=== PATIENT | male | born 1935 | race Caucasian/White ===

== ENCOUNTER 2022-07-20 15:26 | Inpatient (IN) | payer MEDICARE, OTHER ==
[~2022-07-20] VITALS: Ht 185.4 cm; Wt 77.0 kg
[2022-07-20 16:12] LABS: APPEARANCE,URINE CLEAR (CLEAR); BILIRUBIN,URINE NEGATIVE (NEGATIVE); GLUCOSE, URINE (UA) NEGATIVE (NEGATIVE); KETONES,URINE NEGATIVE (NEGATIVE); LEUKOCYTE ESTERASE ,URINE NEGATIVE (NEGATIVE); NITRATE,URINE NEGATIVE (NEGATIVE); OCCULT BLOOD,URINE TRACE (NEGATIVE); PROTEIN,URINE NEGATIVE (NEGATIVE); SPECIFIC GRAVITIY, URINE 1.009 (1.003-1.030); UROBILINOGEN,URINE <=1.0 mg/dL (<=1.0)
[2022-07-20 16:55] LABS: INR 1.1 (0.9-1.1); PROTHROMBIN TIME 11.5 SEC (9.4-11.6)
[2022-07-20 17:08] LABS: ALBUMIN 3.5 g/dL (3.4-5.0); BILIRUBIN,TOTAL 2.7 mg/dL (0.1-1.0); CALCIUM, TOTAL 8.8 mg/dL (8.8-10.5); CREATININE 3.78 mg/dL (0.60-1.30); TOTAL PROTEIN, SERUM 8.4 g/dL (6.4-8.2)
[2022-07-20 17:13] LABS: POTASSIUM 2.9 mmol/L (3.5-5.1)
[2022-07-20 17:22] LABS: BACTERIA,URINE None Seen /HPF (None Seen); WBC,URINE 0-2 /HPF (0-5)
[2022-07-20 17:24] LABS: BASOPHILS % (AUTO) 0.3 % (0.0-2.0); HEMATOCRIT 31.6 % (41-53); HEMOGLOBIN 10.7 g/dL (13.5-17.5); LYMPHOCYTES # (AUTO) 0.6 K/uL (1.0-4.8); LYMPHOCYTES % (AUTO) 4.9 % (22.0-44.0); MEAN CORPUSCULAR HEMOGLOBIN 26.6 pg (26.0-34.0); MEAN CORPUSCULAR HGB CONC 33.9 G/dL (31.0-37.0); MEAN CORPUSCULAR VOLUME 79 fL (80-100); MONOCYTES # (AUTO) 1.1 K/uL (0.1-1.0); MONOCYTES % (AUTO) 9.3 % (2.0-9.0); NEUTROPHILS % (AUTO) 84.5 % (40.0-70.0); PLATELET COUNT (AUTO) 293 K/uL (150-450); RED BLOOD CELL COUNT(AUTO) 4.03 MIL/uL (4.50-5.90); RED CELL DISTRIBUTION WIDTH 20.4 % (11.5-14.5)
[2022-07-20] MEDS ORDERED: FUROSEMIDE 40 MG/4 ML VIAL IVP ONE (17:30)
[2022-07-20] MEDS ORDERED: CefTRIAXone 1 GM/DEXTROSE 50 ML IV ONE (17:30)
[2022-07-20] MEDS ORDERED: AZITHROMYCIN 500 MG/NS 250 ML IV ONE (17:30)
[2022-07-20] MEDS ORDERED: POTASSIUM CHLORIDE 20 MEQ ER TABLET PO ONE (17:30)
[2022-07-20 17:35] LABS: MAGNESIUM 3.1 mg/dL (1.80-2.40)
[2022-07-20] MEDS ORDERED: BUMETANIDE 0.25 MG/ML 4 ML VIAL IVP ONE (18:15)
[2022-07-20] MEDS ORDERED: ONDANSETRON HCL 4 MG/2 ML VIAL IVP PRN (19:15)
[2022-07-20 19:43] LABS: BILIRUBIN,DIRECT 0.3 mg/dL (0.00-0.20); BILIRUBIN,TOTAL 2.8 mg/dL (0.1-1.0)
[2022-07-20] MEDS: DOCUSATE SODIUM 100 MG CAPSULE PO SCH (20:31)
[2022-07-20 22:19] LABS: CREATININE,URINE RANDOM 34.8 mg/dL (30.0-125.0)
[2022-07-20 22:53] LABS: % IRON SATURATION 16.2 % (30-44)
[2022-07-20] MEDS: HEPARIN SODIUM,PORCINE 5,000 UNITS/ML VIAL SQ SCH (23:38)
[2022-07-21] MEDS ORDERED: DEXTROSE 50%-WATER 25 GM/50 ML SYRINGE IVP PRN (05:00)
[2022-07-21 05:01] LABS: ABG BASE EXCESS 14.4 mmol/L (-2.0-3.0); ABG CARBOXYHEMOGLOBIN 1.2 % (0.0-1.5); ABG METHEMOGLOBIN 0.3 % (0.0-1.5); ABG OXYGEN CONTENT 14.8 mL/dL (15.0-23.0); ABG OXYGEN SATURATION 98.4 % (95.0-98.0); ABG OXYHEMOGLOBIN 96.9 % (94.0-100.0); ABG PCO2 41 mmHg (35-45); ABG TOTAL HEMOGLOBIN 10.7 G/dL (12.0-18.0); SOURCE, BLOOD GAS ARTERIAL; TEMPERATURE, FAHRENHEIT, BG 98.6 FAHREN (96.0-98.6)
[2022-07-21 05:02] LABS: ABG A-A DIFF O2 40.6 mmHg (10-20.0); O2 DEVICE,BLOOD GAS NASAL CANNULA (ROOM AIR); SITE, BLOOD GAS RT RADIAL
[2022-07-21 05:08] LABS: HEMATOCRIT 30.1 % (41-53); HEMOGLOBIN 10.4 g/dL (13.5-17.5); MEAN CORPUSCULAR HEMOGLOBIN 27.1 pg (26.0-34.0); MEAN CORPUSCULAR HGB CONC 34.5 G/dL (31.0-37.0); MEAN CORPUSCULAR VOLUME 79 fL (80-100); PLATELET COUNT (AUTO) 236 K/uL (150-450); RED BLOOD CELL COUNT(AUTO) 3.83 MIL/uL (4.50-5.90); RED CELL DISTRIBUTION WIDTH 19.5 % (11.5-14.5)
[2022-07-21 05:20] LABS: CALCIUM, TOTAL 8.6 mg/dL (8.8-10.5); CREATININE 3.64 mg/dL (0.60-1.30); POTASSIUM 3.3 mmol/L (3.5-5.1)
[2022-07-21 06:03] LABS: BAND NEUTROPHILS % (MANUAL) 2 % (0-5); LYMPHOCYTES % (MANUAL) 5 % (22-44); MONOCYTES % (MANUAL) 7 % (2-9); SEGMENTED NEUTROPHILS % 86 % (40-70)
[2022-07-21] MEDS ORDERED: PIPERACILLIN/TAZO 3.375 GM/D5W 50 ML IV ONE (08:00)
[2022-07-21] MEDS ORDERED: PERFLUTREN PROTEIN-A MICROSPHERES 0.22 MG/ML 3 ML VIAL IVP ONE (08:15)
[2022-07-21] MEDS: DOCUSATE SODIUM 100 MG CAPSULE PO SCH ×2 (09:00→20:30)
[2022-07-21 10:59] VITALS: BP 143/72
[2022-07-21 11:01] VITALS: BP 143/70
[2022-07-21] MEDS: INSULIN LISPRO 100 UNITS/ML SQ PRN ×3 (12:17→20:32)
[2022-07-21] MEDS: CARVEDILOL 3.125 MG TABLET PO SCH ×2 (12:19→20:30)
[2022-07-21] MEDS: HEPARIN SODIUM,PORCINE 5,000 UNITS/ML VIAL SQ SCH ×3 (12:19→23:52)
[2022-07-21 13:41] LABS: GLUCOMETER DEV NAME(LOC) 5S.2C; GLUCOSE,POINT OF CARE 188 MG/DL (70-110)
[2022-07-21 13:48] VITALS: BP 143/72
[2022-07-21] MEDS ORDERED: SODIUM CHLORIDE 0.9% 250 ML IV ONE (13:54)
[2022-07-21] MEDS: PIPERACILLIN SODIUM/TAZOBACTAM 2.25 GM in DEXTROSE 5%-WATER 50 ML IV SCH ×2 (14:10→20:30)
[2022-07-21] MEDS ORDERED: VANCOMYCIN 1GM/WATER(PEG/NADA) 200 ML IV PRN (15:00)
[2022-07-21] MEDS ORDERED: VANCOMYCIN 1GM/WATER(PEG/NADA) 200 ML IV ONE (16:00)
[2022-07-21] MEDS: ASPIRIN 81 MG DR TABLET PO SCH (16:24)
[2022-07-21 16:50] VITALS: BP 144/67
[2022-07-21] MEDS ORDERED: CefTRIAXone 1 GM/DEXTROSE 50 ML IV SCH (18:00)
[2022-07-21] MEDS: DOXYCYCLINE HYCLATE 100 MG in DEXTROSE 5%-WATER 100 ML IV SCH (18:36)
[2022-07-21] MEDS ORDERED: AZITHROMYCIN 500 MG/NS 250 ML IV SCH (19:00)
[2022-07-21 20:15] VITALS: BP 145/72
[2022-07-22 00:22] VITALS: BP 129/65
[2022-07-22 03:11] LABS: GLUCOMETER DEV NAME(LOC) 5N.2C; GLUCOSE,POINT OF CARE 180 MG/DL (70-110)
[2022-07-22 03:11] LABS: GLUCOMETER DEV NAME(LOC) 5N.2C; GLUCOSE,POINT OF CARE 288 MG/DL (70-110)
[2022-07-22 04:39] VITALS: BP 150/74
[2022-07-22] MEDS: PIPERACILLIN SODIUM/TAZOBACTAM 2.25 GM in DEXTROSE 5%-WATER 50 ML IV SCH ×3 (04:54→21:25)
[2022-07-22] MEDS: DOXYCYCLINE HYCLATE 100 MG in DEXTROSE 5%-WATER 100 ML IV SCH ×2 (05:39→17:05)
[2022-07-22] MEDS: INSULIN LISPRO 100 UNITS/ML SQ PRN ×4 (05:50→21:26)
[2022-07-22 07:49] VITALS: BP 139/72
[2022-07-22] MEDS: DOCUSATE SODIUM 100 MG CAPSULE PO SCH ×2 (09:08→21:25)
[2022-07-22] MEDS: HEPARIN SODIUM,PORCINE 5,000 UNITS/ML VIAL SQ SCH ×3 (09:08→23:21)
[2022-07-22] MEDS: ATORVASTATIN CALCIUM 40 MG TABLET PO SCH (09:08)
[2022-07-22] MEDS: ASPIRIN 81 MG DR TABLET PO SCH (09:08)
[2022-07-22] MEDS: CARVEDILOL 3.125 MG TABLET PO SCH ×2 (09:08→21:25)
[2022-07-22 10:13] LABS: BASOPHILS % (AUTO) 0.4 % (0.0-2.0); EOSINOPHILS % (AUTO) 1.4 % (1.0-6.0); HEMATOCRIT 29.2 % (41-53); HEMOGLOBIN 9.9 g/dL (13.5-17.5); LYMPHOCYTES # (AUTO) 0.4 K/uL (1.0-4.8); MEAN CORPUSCULAR HEMOGLOBIN 26.7 pg (26.0-34.0); MEAN CORPUSCULAR HGB CONC 33.8 G/dL (31.0-37.0); MEAN CORPUSCULAR VOLUME 79 fL (80-100); MONOCYTES # (AUTO) 0.9 K/uL (0.1-1.0); MONOCYTES % (AUTO) 7.7 % (2.0-9.0); NEUTROPHILS # (AUTO) 10.6 K/uL (1.8-7.7); PLATELET COUNT (AUTO) 239 K/uL (150-450); RED CELL DISTRIBUTION WIDTH 20.4 % (11.5-14.5)
[2022-07-22 10:16] LABS: NEUTROPHILS % (AUTO) 87.5 % (40.0-70.0)
[2022-07-22 10:25] LABS: CALCIUM, TOTAL 8.4 mg/dL (8.8-10.5); CREATININE 3.37 mg/dL (0.60-1.30)
[2022-07-22 10:32] LABS: POTASSIUM 2.4 mmol/L (3.5-5.1)
[2022-07-22 11:24] VITALS: BP 131/62
[2022-07-22] MEDS: POTASSIUM CHL 10 MEQ/WATER 50 ML IV SCH ×3 (13:04→23:21)
[2022-07-22] MEDS: EPOETIN ALFA 10,000 UNITS/ML VIAL SQ SCH (13:22)
[2022-07-22 16:03] VITALS: BP 139/73
[2022-07-22] MEDS ORDERED: POTASSIUM CHLORIDE 20 MEQ ER TABLET PO PRN (17:00)
[2022-07-22 20:02] VITALS: BP 129/62
[2022-07-22] MEDS ORDERED: SODIUM CL IRRIG SOLN BOTTLE 0 ML IRRIG ONE (20:13)
[2022-07-22 22:29] LABS: CALCIUM, TOTAL 8.5 mg/dL (8.8-10.5); CREATININE 3.14 mg/dL (0.60-1.30); PHOSPHORUS 4.6 mg/dL (2.5-4.9)
[2022-07-22 22:31] LABS: POTASSIUM 2.9 mmol/L (3.5-5.1)
[2022-07-22] MEDS ORDERED: SODIUM CHLORIDE 0.9% 500 ML IV ONE (23:59)
[2022-07-23] MEDS: POTASSIUM CHL 10 MEQ/WATER 50 ML IV SCH (03:11)
[2022-07-23] MEDS: PIPERACILLIN SODIUM/TAZOBACTAM 2.25 GM in DEXTROSE 5%-WATER 50 ML IV SCH ×3 (04:52→20:54)
[2022-07-23 06:44] LABS: BASOPHILS % (AUTO) 0.4 % (0.0-2.0); EOSINOPHILS % (AUTO) 0.9 % (1.0-6.0); HEMATOCRIT 26.8 % (41-53); HEMOGLOBIN 9.4 g/dL (13.5-17.5); LYMPHOCYTES # (AUTO) 0.5 K/uL (1.0-4.8); LYMPHOCYTES % (AUTO) 3.5 % (22.0-44.0); MEAN CORPUSCULAR HEMOGLOBIN 27.7 pg (26.0-34.0); MEAN CORPUSCULAR HGB CONC 34.9 G/dL (31.0-37.0); MEAN CORPUSCULAR VOLUME 79 fL (80-100); MONOCYTES # (AUTO) 1.1 K/uL (0.1-1.0); MONOCYTES % (AUTO) 8.9 % (2.0-9.0); PLATELET COUNT (AUTO) 195 K/uL (150-450); RED BLOOD CELL COUNT(AUTO) 3.39 MIL/uL (4.50-5.90); RED CELL DISTRIBUTION WIDTH 20.1 % (11.5-14.5)
[2022-07-23] MEDS: DOXYCYCLINE HYCLATE 100 MG in DEXTROSE 5%-WATER 100 ML IV SCH ×2 (06:45→17:24)
[2022-07-23] MEDS: ALBUTEROL SULFATE 2.5 MG/0.5 ML NEB SOLUTION NEB SCH ×3 (06:50→23:39)
[2022-07-23] MEDS: IPRATROPIUM BROMIDE 0.5 MG/2.5 ML NEB SOLUTION NEB SCH ×3 (06:50→23:39)
[2022-07-23 06:52] LABS: NEUTROPHILS % (AUTO) 86.3 % (40.0-70.0)
[2022-07-23 07:12] LABS: GLUCOMETER DEV NAME(LOC) 5N.2C; GLUCOSE,POINT OF CARE 187 MG/DL (70-110)
[2022-07-23 07:12] LABS: GLUCOMETER DEV NAME(LOC) 5N.2C; GLUCOSE,POINT OF CARE 194 MG/DL (70-110)
[2022-07-23 07:49] VITALS: BP 136/63
[2022-07-23] MEDS: ATORVASTATIN CALCIUM 40 MG TABLET PO SCH (08:25)
[2022-07-23] MEDS: HEPARIN SODIUM,PORCINE 5,000 UNITS/ML VIAL SQ SCH ×3 (08:25→22:47)
[2022-07-23] MEDS: CARVEDILOL 3.125 MG TABLET PO SCH ×2 (08:26→20:54)
[2022-07-23] MEDS: ASPIRIN 81 MG DR TABLET PO SCH (08:26)
[2022-07-23] MEDS: DOCUSATE SODIUM 100 MG CAPSULE PO SCH ×2 (09:00→21:00)
[2022-07-23 11:03] LABS: CALCIUM, TOTAL 8.5 mg/dL (8.8-10.5); CREATININE 3.09 mg/dL (0.60-1.30); MAGNESIUM 2.9 mg/dL (1.80-2.40); PHOSPHORUS 4.4 mg/dL (2.5-4.9); POTASSIUM 3.6 mmol/L (3.5-5.1); VANCOMYCIN,RANDOM 8.9 mcg/mL (25.0-50.0)
[2022-07-23 11:32] VITALS: BP 134/77
[2022-07-23] MEDS ORDERED: VANCOMYCIN 1GM/WATER(PEG/NADA) 200 ML IV ONE (12:00)
[2022-07-23] MEDS ORDERED: POTASSIUM CHLORIDE 20 MEQ ER TABLET PO PRN (12:00)
[2022-07-23] MEDS: INSULIN LISPRO 100 UNITS/ML SQ PRN ×3 (12:12→20:55)
[2022-07-23] MEDS: ALBUTEROL SULFATE 2.5 MG/0.5 ML NEB SOLUTION NEB PRN ×2 (15:07→20:19)
[2022-07-23] MEDS: IPRATROPIUM BROMIDE 0.5 MG/2.5 ML NEB SOLUTION NEB PRN ×2 (15:07→20:19)
[2022-07-23 15:59] VITALS: BP 135/72
[2022-07-23] MEDS ORDERED: FUROSEMIDE 40 MG/4 ML VIAL IVP ONE ×2 (16:00→22:15)
[2022-07-23 17:31] LABS: GLUCOMETER DEV NAME(LOC) 5S.2C; GLUCOSE,POINT OF CARE 195 MG/DL (70-110)
[2022-07-23 17:31] LABS: GLUCOMETER DEV NAME(LOC) 5S.2C; GLUCOSE,POINT OF CARE 266 MG/DL (70-110)
[2022-07-23 19:23] VITALS: BP 140/74
[2022-07-23 22:00] LABS: GLUCOMETER DEV NAME(LOC) 5N.2C; GLUCOSE,POINT OF CARE 237 MG/DL (70-110)
[2022-07-23 22:00] LABS: GLUCOMETER DEV NAME(LOC) 5N.2C; GLUCOSE,POINT OF CARE 212 MG/DL (70-110)
[2022-07-23 22:02] LABS: GLUCOMETER DEV NAME(LOC) 5S.2C; GLUCOSE,POINT OF CARE 222 MG/DL (70-110)
[2022-07-23 22:02] LABS: GLUCOMETER DEV NAME(LOC) 5N.2C; GLUCOSE,POINT OF CARE 200 MG/DL (70-110)
[2022-07-24 00:18] VITALS: BP 140/70
[2022-07-24] MEDS: PIPERACILLIN SODIUM/TAZOBACTAM 2.25 GM in DEXTROSE 5%-WATER 50 ML IV SCH ×3 (04:34→20:04)
[2022-07-24] MEDS: INSULIN LISPRO 100 UNITS/ML SQ PRN ×4 (05:23→20:03)
[2022-07-24] MEDS: DOXYCYCLINE HYCLATE 100 MG in DEXTROSE 5%-WATER 100 ML IV SCH ×2 (05:25→17:25)
[2022-07-24 05:44] VITALS: BP 125/65
[2022-07-24] MEDS: IPRATROPIUM BROMIDE 0.5 MG/2.5 ML NEB SOLUTION NEB SCH ×3 (07:19→22:47)
[2022-07-24] MEDS: ALBUTEROL SULFATE 2.5 MG/0.5 ML NEB SOLUTION NEB SCH ×3 (07:19→22:47)
[2022-07-24 07:26] LABS: BASOPHILS % (AUTO) 0.3 % (0.0-2.0); EOSINOPHILS % (AUTO) 0.6 % (1.0-6.0); HEMATOCRIT 27.4 % (41-53); HEMOGLOBIN 9.3 g/dL (13.5-17.5); LYMPHOCYTES # (AUTO) 0.4 K/uL (1.0-4.8); LYMPHOCYTES % (AUTO) 3.7 % (22.0-44.0); MEAN CORPUSCULAR HEMOGLOBIN 26.9 pg (26.0-34.0); MEAN CORPUSCULAR VOLUME 79 fL (80-100); MONOCYTES # (AUTO) 1.1 K/uL (0.1-1.0); MONOCYTES % (AUTO) 9.3 % (2.0-9.0); NEUTROPHILS # (AUTO) 10.3 K/uL (1.8-7.7); PLATELET COUNT (AUTO) 192 K/uL (150-450); RED BLOOD CELL COUNT(AUTO) 3.46 MIL/uL (4.50-5.90); RED CELL DISTRIBUTION WIDTH 20.2 % (11.5-14.5)
[2022-07-24 07:43] LABS: NEUTROPHILS % (AUTO) 86.1 % (40.0-70.0)
[2022-07-24 07:45] LABS: CALCIUM, TOTAL 8.8 mg/dL (8.8-10.5); CREATININE 3.4 mg/dL (0.60-1.30); MAGNESIUM 2.8 mg/dL (1.80-2.40); PHOSPHORUS 5.2 mg/dL (2.5-4.9); POTASSIUM 3.4 mmol/L (3.5-5.1)
[2022-07-24 08:10] VITALS: BP 129/60
[2022-07-24] MEDS: ASPIRIN 81 MG DR TABLET PO SCH (08:20)
[2022-07-24] MEDS: HEPARIN SODIUM,PORCINE 5,000 UNITS/ML VIAL SQ SCH ×3 (08:20→23:25)
[2022-07-24] MEDS: CARVEDILOL 3.125 MG TABLET PO SCH ×2 (08:20→20:17)
[2022-07-24] MEDS: ATORVASTATIN CALCIUM 40 MG TABLET PO SCH (08:21)
[2022-07-24] MEDS: DOCUSATE SODIUM 100 MG CAPSULE PO SCH ×2 (08:29→20:17)
[2022-07-24] MEDS: POTASSIUM CHLORIDE 20 MEQ ER TABLET PO PRN ×2 (09:04→21:14)
[2022-07-24 10:01] LABS: GLUCOMETER DEV NAME(LOC) 5S.2C; GLUCOSE,POINT OF CARE 222 MG/DL (70-110)
[2022-07-24 11:35] VITALS: BP 123/71
[2022-07-24] MEDS: IPRATROPIUM BROMIDE 0.5 MG/2.5 ML NEB SOLUTION NEB PRN (11:57)
[2022-07-24] MEDS: ALBUTEROL SULFATE 2.5 MG/0.5 ML NEB SOLUTION NEB PRN (11:57)
[2022-07-24 16:50] VITALS: BP 131/67
[2022-07-24 20:13] VITALS: BP 146/68
[2022-07-24 21:01] LABS: GLUCOMETER DEV NAME(LOC) 5N.2C; GLUCOSE,POINT OF CARE 175 MG/DL (70-110)
[2022-07-24 21:26] LABS: GLUCOMETER DEV NAME(LOC) 5S.2C; GLUCOSE,POINT OF CARE 212 MG/DL (70-110)
[2022-07-24 21:26] LABS: GLUCOMETER DEV NAME(LOC) 5S.2C; GLUCOSE,POINT OF CARE 224 MG/DL (70-110)
[2022-07-24] MEDS: BUDESONIDE 0.5 MG/2 ML NEB SOLUTION NEB SCH (21:37)
[2022-07-25 00:58] VITALS: BP 134/62
[2022-07-25] MEDS: IPRATROPIUM BROMIDE 0.5 MG/2.5 ML NEB SOLUTION NEB PRN (03:04)
[2022-07-25] MEDS: ALBUTEROL SULFATE 2.5 MG/0.5 ML NEB SOLUTION NEB PRN (03:04)
[2022-07-25] MEDS: PIPERACILLIN SODIUM/TAZOBACTAM 2.25 GM in DEXTROSE 5%-WATER 50 ML IV SCH ×3 (05:18→20:35)
[2022-07-25 06:02] VITALS: BP 131/65
[2022-07-25] MEDS: DOXYCYCLINE HYCLATE 100 MG in DEXTROSE 5%-WATER 100 ML IV SCH ×2 (06:04→18:45)
[2022-07-25] MEDS: INSULIN LISPRO 100 UNITS/ML SQ PRN ×4 (06:14→20:37)
[2022-07-25 07:23] LABS: BASOPHILS % (AUTO) 0.4 % (0.0-2.0); EOSINOPHILS % (AUTO) 0.8 % (1.0-6.0); HEMATOCRIT 26.2 % (41-53); LYMPHOCYTES # (AUTO) 0.5 K/uL (1.0-4.8); LYMPHOCYTES % (AUTO) 3.5 % (22.0-44.0); MEAN CORPUSCULAR HEMOGLOBIN 27.5 pg (26.0-34.0); MEAN CORPUSCULAR HGB CONC 34.5 G/dL (31.0-37.0); MEAN CORPUSCULAR VOLUME 80 fL (80-100); MONOCYTES # (AUTO) 1.5 K/uL (0.1-1.0); MONOCYTES % (AUTO) 10.1 % (2.0-9.0); NEUTROPHILS # (AUTO) 12.9 K/uL (1.8-7.7); PLATELET COUNT (AUTO) 228 K/uL (150-450); RED BLOOD CELL COUNT(AUTO) 3.29 MIL/uL (4.50-5.90); RED CELL DISTRIBUTION WIDTH 21.1 % (11.5-14.5)
[2022-07-25 07:32] LABS: NEUTROPHILS % (AUTO) 85.2 % (40.0-70.0)
[2022-07-25 07:46] LABS: ALBUMIN 3.1 g/dL (3.4-5.0); CREATININE 3.39 mg/dL (0.60-1.30); MAGNESIUM 2.9 mg/dL (1.80-2.40); PHOSPHORUS 4.6 mg/dL (2.5-4.9); POTASSIUM 3.4 mmol/L (3.5-5.1); TOTAL PROTEIN, SERUM 7.8 g/dL (6.4-8.2); VANCOMYCIN,RANDOM 15.2 mcg/mL (25.0-50.0)
[2022-07-25] MEDS: ALBUTEROL SULFATE 2.5 MG/0.5 ML NEB SOLUTION NEB SCH ×3 (07:53→23:03)
[2022-07-25] MEDS: IPRATROPIUM BROMIDE 0.5 MG/2.5 ML NEB SOLUTION NEB SCH ×3 (07:53→23:03)
[2022-07-25] MEDS ORDERED: BUMETANIDE 1 MG TABLET PO SCH (08:00)
[2022-07-25 08:05] LABS: GLUCOMETER DEV NAME(LOC) 5N.2C; GLUCOSE,POINT OF CARE 195 MG/DL (70-110)
[2022-07-25] MEDS: BUDESONIDE 0.5 MG/2 ML NEB SOLUTION NEB SCH ×2 (08:07→20:04)
[2022-07-25] MEDS: EPOETIN ALFA 10,000 UNITS/ML VIAL SQ SCH (08:47)
[2022-07-25] MEDS: HEPARIN SODIUM,PORCINE 5,000 UNITS/ML VIAL SQ SCH ×3 (08:48→23:15)
[2022-07-25] MEDS: DOCUSATE SODIUM 100 MG CAPSULE PO SCH ×2 (08:48→21:00)
[2022-07-25] MEDS: CARVEDILOL 3.125 MG TABLET PO SCH ×2 (08:48→20:34)
[2022-07-25] MEDS: ATORVASTATIN CALCIUM 40 MG TABLET PO SCH (08:48)
[2022-07-25] MEDS: ASPIRIN 81 MG DR TABLET PO SCH (08:48)
[2022-07-25] MEDS ORDERED: POTASSIUM CHLORIDE 10% 40 MEQ/30 ML LIQUID UDCUP PO ONE ×2 (11:15→19:00)
[2022-07-25 11:19] VITALS: BP 141/66
[2022-07-25] MEDS ORDERED: VANCOMYCIN 1GM/WATER(PEG/NADA) 200 ML IV ONE (13:00)
[2022-07-25] MEDS ORDERED: POTASSIUM CHLORIDE 20 MEQ ER TABLET PO ONE ×2 (13:15→20:00)
[2022-07-25 13:56] LABS: GLUCOMETER DEV NAME(LOC) 5S.2C; GLUCOSE,POINT OF CARE 244 MG/DL (70-110)
[2022-07-25 15:19] VITALS: BP 129/70
[2022-07-25 20:25] VITALS: BP 137/68
[2022-07-25] MEDS: BUMETANIDE 1 MG TABLET PO SCH (20:35)
[2022-07-25] MEDS: ACETAMINOPHEN 325 MG TABLET PO PRN (21:23)
[2022-07-26] VITALS (7 sets, daily range): BP systolic 115–148; BP diastolic 64–80
[2022-07-26 03:56] LABS: GLUCOMETER DEV NAME(LOC) 5N.2C; GLUCOSE,POINT OF CARE 186 MG/DL (70-110)
[2022-07-26 03:56] LABS: GLUCOMETER DEV NAME(LOC) 5N.2C; GLUCOSE,POINT OF CARE 203 MG/DL (70-110)
[2022-07-26] MEDS: PIPERACILLIN SODIUM/TAZOBACTAM 2.25 GM in DEXTROSE 5%-WATER 50 ML IV SCH ×3 (04:11→19:53)
[2022-07-26] MEDS: INSULIN LISPRO 100 UNITS/ML SQ PRN ×4 (05:10→19:55)
[2022-07-26] MEDS: DOXYCYCLINE HYCLATE 100 MG in DEXTROSE 5%-WATER 100 ML IV SCH ×2 (05:11→18:32)
[2022-07-26 05:31] LABS: GLUCOMETER DEV NAME(LOC) 5N.2C; GLUCOSE,POINT OF CARE 174 MG/DL (70-110)
[2022-07-26 06:39] LABS: BASOPHILS % (AUTO) 0.5 % (0.0-2.0); EOSINOPHILS % (AUTO) 1.5 % (1.0-6.0); HEMATOCRIT 23.9 % (41-53); HEMOGLOBIN 8.3 g/dL (13.5-17.5); LYMPHOCYTES # (AUTO) 0.6 K/uL (1.0-4.8); LYMPHOCYTES % (AUTO) 4.9 % (22.0-44.0); MEAN CORPUSCULAR HEMOGLOBIN 27.6 pg (26.0-34.0); MEAN CORPUSCULAR HGB CONC 34.5 G/dL (31.0-37.0); MEAN CORPUSCULAR VOLUME 80 fL (80-100); MONOCYTES # (AUTO) 1.3 K/uL (0.1-1.0); NEUTROPHILS # (AUTO) 9.4 K/uL (1.8-7.7); NEUTROPHILS % (AUTO) 82.1 % (40.0-70.0); PLATELET COUNT (AUTO) 197 K/uL (150-450); RED BLOOD CELL COUNT(AUTO) 2.99 MIL/uL (4.50-5.90); RED CELL DISTRIBUTION WIDTH 20.9 % (11.5-14.5)
[2022-07-26] MEDS: ALBUTEROL SULFATE 2.5 MG/0.5 ML NEB SOLUTION NEB SCH ×3 (07:19→23:04)
[2022-07-26] MEDS: IPRATROPIUM BROMIDE 0.5 MG/2.5 ML NEB SOLUTION NEB SCH ×3 (07:19→23:04)
[2022-07-26 07:49] LABS: ALBUMIN 2.9 g/dL (3.4-5.0); BILIRUBIN,TOTAL 3.3 mg/dL (0.1-1.0); CALCIUM, TOTAL 9.1 mg/dL (8.8-10.5); CREATININE 3.69 mg/dL (0.60-1.30); POTASSIUM 3.9 mmol/L (3.5-5.1); TOTAL PROTEIN, SERUM 7.5 g/dL (6.4-8.2)
[2022-07-26] MEDS: BUDESONIDE 0.5 MG/2 ML NEB SOLUTION NEB SCH ×2 (08:03→20:00)
[2022-07-26] MEDS: CARVEDILOL 3.125 MG TABLET PO SCH ×2 (08:52→19:53)
[2022-07-26] MEDS: ASPIRIN 81 MG DR TABLET PO SCH (08:52)
[2022-07-26] MEDS: HEPARIN SODIUM,PORCINE 5,000 UNITS/ML VIAL SQ SCH ×3 (08:53→23:29)
[2022-07-26] MEDS: BUMETANIDE 1 MG TABLET PO SCH ×2 (08:53→17:43)
[2022-07-26] MEDS: INSULIN GLARGINE,HUM.REC.ANLOG 100 UNITS/ML SQ SCH (08:56)
[2022-07-26] MEDS: DOCUSATE SODIUM 100 MG CAPSULE PO SCH ×2 (09:00→20:00)
[2022-07-26] MEDS: ATORVASTATIN CALCIUM 40 MG TABLET PO SCH (09:03)
[2022-07-26] MEDS: POTASSIUM CHLORIDE 10% 40 MEQ/30 ML LIQUID UDCUP PO SCH (13:33)
[2022-07-26 19:46] LABS: GLUCOMETER DEV NAME(LOC) 5S.2C; GLUCOSE,POINT OF CARE 196 MG/DL (70-110)
[2022-07-26 21:26] LABS: GLUCOMETER DEV NAME(LOC) 5N.2C; GLUCOSE,POINT OF CARE 168 MG/DL (70-110)
[2022-07-26 21:26] LABS: GLUCOMETER DEV NAME(LOC) 5N.1C; GLUCOSE,POINT OF CARE 204 MG/DL (70-110)
[2022-07-26 21:31] LABS: GLUCOMETER DEV NAME(LOC) 5N.2C; GLUCOSE,POINT OF CARE 154 MG/DL (70-110)
[2022-07-26] MEDS: ACETAMINOPHEN 325 MG TABLET PO PRN (21:57)
[2022-07-27 03:18] VITALS: BP 104/66
[2022-07-27] MEDS: PIPERACILLIN SODIUM/TAZOBACTAM 2.25 GM in DEXTROSE 5%-WATER 50 ML IV SCH ×3 (04:06→20:46)
[2022-07-27] MEDS: DOXYCYCLINE HYCLATE 100 MG in DEXTROSE 5%-WATER 100 ML IV SCH ×2 (05:09→17:22)
[2022-07-27] MEDS: BUMETANIDE 1 MG TABLET PO SCH ×2 (05:33→17:22)
[2022-07-27] MEDS: INSULIN LISPRO 100 UNITS/ML SQ PRN ×4 (05:33→22:01)
[2022-07-27] MEDS: IPRATROPIUM BROMIDE 0.5 MG/2.5 ML NEB SOLUTION NEB SCH ×3 (07:15→23:24)
[2022-07-27] MEDS: ALBUTEROL SULFATE 2.5 MG/0.5 ML NEB SOLUTION NEB SCH ×3 (07:15→23:25)
[2022-07-27 07:20] LABS: CALCIUM, TOTAL 8.8 mg/dL (8.8-10.5); CREATININE 3.83 mg/dL (0.60-1.30); POTASSIUM 3.7 mmol/L (3.5-5.1); VANCOMYCIN,RANDOM 18.6 mcg/mL (25.0-50.0)
[2022-07-27 07:45] VITALS: BP 141/75
[2022-07-27] MEDS: BUDESONIDE 0.5 MG/2 ML NEB SOLUTION NEB SCH ×2 (08:05→20:12)
[2022-07-27] MEDS: HEPARIN SODIUM,PORCINE 5,000 UNITS/ML VIAL SQ SCH ×2 (08:36→16:27)
[2022-07-27] MEDS: CARVEDILOL 3.125 MG TABLET PO SCH ×2 (08:36→20:46)
[2022-07-27] MEDS: ATORVASTATIN CALCIUM 40 MG TABLET PO SCH (08:36)
[2022-07-27] MEDS: ASPIRIN 81 MG DR TABLET PO SCH (08:37)
[2022-07-27] MEDS: POTASSIUM CHLORIDE 10% 40 MEQ/30 ML LIQUID UDCUP PO SCH (08:37)
[2022-07-27] MEDS: EPOETIN ALFA 10,000 UNITS/ML VIAL SQ SCH (08:37)
[2022-07-27] MEDS: INSULIN GLARGINE,HUM.REC.ANLOG 100 UNITS/ML SQ SCH (08:43)
[2022-07-27] MEDS: DOCUSATE SODIUM 100 MG CAPSULE PO SCH ×2 (09:00→20:46)
[2022-07-27 11:51] LABS: GLUCOMETER DEV NAME(LOC) 5N.1C; GLUCOSE,POINT OF CARE 166 MG/DL (70-110)
[2022-07-27 11:51] LABS: GLUCOMETER DEV NAME(LOC) 5N.1C; GLUCOSE,POINT OF CARE 145 MG/DL (70-110)
[2022-07-27 12:10] VITALS: BP 131/71
[2022-07-27] MEDS ORDERED: LOPERAMIDE HCL 2 MG CAPSULE PO PRN (12:15)
[2022-07-27] MEDS ORDERED: VANCOMYCIN 1GM/WATER(PEG/NADA) 200 ML IV ONE (13:00)
[2022-07-27 15:11] LABS: GLUCOMETER DEV NAME(LOC) 5N.1C; GLUCOSE,POINT OF CARE 197 MG/DL (70-110)
[2022-07-27 16:30] VITALS: BP 124/64
[2022-07-27 18:52] LABS: GLUCOMETER DEV NAME(LOC) 5N.1C; GLUCOSE,POINT OF CARE 179 MG/DL (70-110)
[2022-07-27 21:22] VITALS: BP 130/73
[2022-07-28 00:16] LABS: GLUCOMETER DEV NAME(LOC) 5N.1C; GLUCOSE,POINT OF CARE 148 MG/DL (70-110)
[2022-07-28 04:45] VITALS: BP 112/57
[2022-07-28] MEDS: PIPERACILLIN SODIUM/TAZOBACTAM 2.25 GM in DEXTROSE 5%-WATER 50 ML IV SCH ×2 (05:25→12:49)
[2022-07-28] MEDS: DOXYCYCLINE HYCLATE 100 MG in DEXTROSE 5%-WATER 100 ML IV SCH ×2 (06:16→17:06)
[2022-07-28] MEDS: BUMETANIDE 1 MG TABLET PO SCH ×2 (06:16→17:09)
[2022-07-28 06:30] LABS: GLUCOMETER DEV NAME(LOC) 5S.2C; GLUCOSE,POINT OF CARE 121 MG/DL (70-110)
[2022-07-28] MEDS: ALBUTEROL SULFATE 2.5 MG/0.5 ML NEB SOLUTION NEB SCH ×2 (06:52→15:39)
[2022-07-28] MEDS: IPRATROPIUM BROMIDE 0.5 MG/2.5 ML NEB SOLUTION NEB SCH ×2 (06:52→15:39)
[2022-07-28] MEDS: BUDESONIDE 0.5 MG/2 ML NEB SOLUTION NEB SCH (06:52)
[2022-07-28 08:25] VITALS: BP 137/81
[2022-07-28] MEDS: CARVEDILOL 3.125 MG TABLET PO SCH (08:26)
[2022-07-28] MEDS: HEPARIN SODIUM,PORCINE 5,000 UNITS/ML VIAL SQ SCH ×3 (08:26→17:09)
[2022-07-28] MEDS: POTASSIUM CHLORIDE 20 MEQ ER TABLET PO PRN (08:27)
[2022-07-28] MEDS: ATORVASTATIN CALCIUM 40 MG TABLET PO SCH (08:27)
[2022-07-28] MEDS: DOCUSATE SODIUM 100 MG CAPSULE PO SCH (08:27)
[2022-07-28] MEDS: ASPIRIN 81 MG DR TABLET PO SCH (08:27)
[2022-07-28] MEDS: INSULIN GLARGINE,HUM.REC.ANLOG 100 UNITS/ML SQ SCH (08:29)
[2022-07-28] MEDS: POTASSIUM CHLORIDE 10% 40 MEQ/30 ML LIQUID UDCUP PO SCH (08:29)
[2022-07-28 11:50] VITALS: BP 123/60
[2022-07-28] MEDS: INSULIN LISPRO 100 UNITS/ML SQ PRN (13:12)
[2022-07-28 16:05] VITALS: BP 122/72
[2022-07-28 20:21] LABS: GLUCOMETER DEV NAME(LOC) 5N.1C; GLUCOSE,POINT OF CARE 186 MG/DL (70-110)
== END 2022-07-28 19:15 | disposition hospice, home (50) | DRG 177 ==
LOC: EMS 15:34 → 5S 07-21 08:43
PROVIDERS: ADMIT Internal Medicine; ATTEND Internal Medicine
PROC: 5A09357 Assistance with Respiratory Ventilation, Less than 24 Consecutive Hours, Continuous Positive Airway Pressure (ICD-10-PCS; principal; 2022-07-21)
PROC: 5A09357 Assistance with Respiratory Ventilation, Less than 24 Consecutive Hours, Continuous Positive Airway Pressure (ICD-10-PCS; 2022-07-23)
DX: J69.0 Pneumonitis due to inhalation of food and vomit (principal); I50.23 Acute on chronic systolic (congestive) heart failure; N17.0 Acute kidney failure with tubular necrosis; J96.21 Acute and chronic respiratory failure with hypoxia; I13.0 Hypertensive heart and chronic kidney disease with heart failure and stage 1 through stage 4 chronic kidney disease, or unspecified chronic kidney disease; E87.3 Alkalosis; E87.1 Hypo-osmolality and hyponatremia; N18.4 Chronic kidney disease, stage 4 (severe); Z66 Do not resuscitate; Z20.822 Contact with and (suspected) exposure to COVID-19; E87.6 Hypokalemia; E11.22 Type 2 diabetes mellitus with diabetic chronic kidney disease; I25.5 Ischemic cardiomyopathy; D64.9 Anemia, unspecified; B95.7 Other staphylococcus as the cause of diseases classified elsewhere; I25.10 Atherosclerotic heart disease of native coronary artery without angina pectoris; I34.0 Nonrheumatic mitral (valve) insufficiency; I48.91 Unspecified atrial fibrillation; D71 Functional disorders of polymorphonuclear neutrophils; J43.9 Emphysema, unspecified; D72.829 Elevated white blood cell count, unspecified; Z95.810 Presence of automatic (implantable) cardiac defibrillator; Z99.81 Dependence on supplemental oxygen; Z51.5 Encounter for palliative care; Z95.5 Presence of coronary angioplasty implant and graft; Z87.891 Personal history of nicotine dependence
CPT/HCPCS: 36600; 71045; 71250; 76770; 80048; 80053; 80202; 81001; 81003; 82247; 82248; 82550; 82570; 82805; 82962; 83010; 83540; 83550; 83615; 83735; 83874; 83880; 84100; 84132; 84145; 84300; 84484; 84540; 85007; 85025; 85027; 85045; 85610; 85730; 87040; 87077; 87205; 92523; 92526; 92610; 93005; 94640; 94660; 97110; 97116; 97163; 97166; 97530; 97535; 99291; C8929; J0456; J0696; J0885; J1644; J1815; J1940; J2543; J3480; J3490; J7040; J7050; J7060; Q9967; 36415-L1; 36415-TC; C8928; J7613